=== PATIENT | male | born 1965 | race Caucasian/White ===

== ENCOUNTER 2016-08-25 07:12 | Emergency (ER) ==
[2016-08-25 07:28] VITALS: BP 152/85
--- NOTE | 2016-08-25 08:36 | PROVIDER DOCUMENTATION ---
HPI-General Adult - General Chief Complaint: Insect Bite/Sting Stated Complaint: LEFT EYE COMPLAINT Time Seen by Provider: 08/25/16 07:30 Allergies/Adverse Reactions: Patient Allergies Allergy/AdvReac Type Severity Reaction Status Date / Time No Known Allergies Allergy Verified 08/25/16 07:51 Home Medications: Home Medication List Medication Instructions Recorded Confirmed Last Taken Type Amlodipine [Norvasc] 10 mg PO DAILY 10/24/12 08/25/16 08/25/16 History Gemfibrozil 600 mg PO BID 08/25/16 08/25/16 08/24/16 History Mupirocin 22 gm TP TID #1 oint...g. 08/25/16 Unknown Rx Quetiapine Fumarate [Seroquel] 300 mg PO QHS 08/25/16 08/25/16 08/24/16 History - History of Present Illness -Gen Adult Nature of Presenting Problems: Says that he things he may have been bitten by an insect. patient did not see insect, but felt a small bite. says he noticed some irritation on his outer eyelid, no difficulty seing out of left eye. He has been fever free. Location of Pain/Injury: reports: other (left eyelid) Pain Radiation: reports: no radiation Quality of Pain: reports: other (irritation) Onset/Duration: reports: just prior to arrival Associated Symptoms: reports: denies symptoms Similar Symptoms Previously?: No Review of Systems - Adult - REVIEW OF SYSTEMS - ADULT Constitutional: reports: no symptoms reported Eyes: reports: see HPI Ears, Nose, Mouth & Throat: reports: no symptoms reported Cardiovascular: reports: no symptoms reported Respiratory: reports: no symptoms reported Gastrointestinal: reports: no symptoms reported Musculoskeletal: reports: no symptoms reported Integumentary: reports: see HPI (eye lid irritation) Allergic/Immunologic: reports: no symptoms reported Past History - Adult - PAST MEDICAL HISTORY-ADULT Review of Records: reports: Nursing Assessment Review Cardiovascular: reports: HTN Gastrointestinal: reports: denies history Psychiatric: reports: psychiatric problems - IMMUNIZATION STATUS Childhood Immunizations: See Nurse Assessment - FAMILY HISTORY Family History: reviewed, not pertinent - SOCIAL HISTORY Smoking: less than 1 pack/day Physical Exam-General - PHYSICAL EXAM-ADULT Initial Vital Signs Reviewed: Yes - CONSTITUTIONAL General Appearance: appears well, alert, no apparent distress - EYES Eyes: other (left ey globe apbsent (chronic) left eyelid with mild erythema, no discharge). negative: conjuctival exudate, EOM palsy, photophobia, sclera injected, scleral icterus - HEAD, EARS, NOSE, MOUTH & THROAT HENMT: normocephalic/atraumatic - NECK Neck: non-tender, supple. negative: meningismus, trachial deviation - RESPIRATORY Respiratory: chest non-tender, lungs clear, normal breath sounds, no respiratory distress - CARDIOVASCULAR Cardiovascular: normal peripheral pulses - GASTROINTESTINAL (ABDOMEN) Abdominal Exam: normal bowel sounds, non tender, soft - GENITOURINARY Female Genitalia/Pelvic Exam: deferred Male Genitalia: deferred Rectal Exam: deferred - LYMPHATIC Lymphatic: no adenopathy - MUSCULOSKELETAL Back Exam: normal inspection - SKIN Integumentary: other (irritation on left eye lid) - PSYCHIATRIC Psych/Mental Status: normal mood/affect Departure - Departure Time of Disposition Order: 08:00 DIAGNOSIS: Insect bite Disposition: HOME 01 Certified Medical Emergency: Urgent Condition: Stable Additional Instructions: All questions answered with regard to treatment. ED Follow Up Instructions: You have been treated by a care provider in the Emergency Department. These instructions are being provided to you so you can have an understanding of how to care for yourself upon discharge. Upon discharge from the Emergency Department, you are responsible for making arrangements for follow-up care by a physician of your choice. Take all prescribed medications as directed. Return to the Emergency Department immediately for any new or worsening symptoms. You may call the Physician Referral phone number at [phone] to obtain a list of Physicians who are taking new patients. Prescriptions: Mupirocin 22 gm TP TID #1 oint...g. Referrals: Abhilash Hernandez MD [Primary Care Provider] -
== END 2016-08-25 08:52 | disposition home or self-care (01) ==
LOC: ED 07:12
DX: S00.262A Insect bite (nonvenomous) of left eyelid and periocular area, initial encounter (principal); L53.9 Erythematous condition, unspecified; I10 Essential (primary) hypertension; F17.210 Nicotine dependence, cigarettes, uncomplicated; Z79.899 Other long term (current) drug therapy; W57.XXXA Bitten or stung by nonvenomous insect and other nonvenomous arthropods, initial encounter
CPT/HCPCS: 99281